=== PATIENT | male | born 1975 | race Caucasian/White ===

== ENCOUNTER 2019-05-24 11:32 | Emergency (ER) | payer OTHER ==
[~2019-05-24] VITALS: Ht 177.8 cm; Wt 90.7 kg
[2019-05-24] MEDS ORDERED: ORPHENADRINE C100 MG PO (16:18)
[2019-05-24] MEDS ORDERED: KETO10TA2 PO (16:18)
[2019-05-24] MEDS ORDERED: MAPAP500 MG (16:36)
== END 2019-05-24 17:01 ==
LOC: ER 11:32
DX: M54.89 Other dorsalgia (principal)